=== PATIENT | male | born 1980 | race Caucasian/White ===

== ENCOUNTER 2021-01-09 17:33 | Emergency (ER) | payer OTHER ==
[~2021-01-09] VITALS: Ht 175.3 cm; Wt 99.8 kg
[2021-01-09 17:40] VITALS: BP 183/115
--- NOTE | 2021-01-09 17:40 | NUR ---
to bed via wheelchair
[2021-01-09] MEDS ORDERED: NITROGLYCERIN 0.4 MG TAB SL ONE ×2 (17:55→18:20)
[2021-01-09] MEDS ORDERED: MORPHINE SULFATE 4 MG/ML SYR IVP ONE (18:00)
[2021-01-09] MEDS ORDERED: ONDANSETRON 4 MG/2 ML VIAL IVP ONE (18:00)
[2021-01-09] MEDS ORDERED: ASPIRIN 81 MG TAB.CHEW PO ONE (18:00)
--- NOTE | 2021-01-09 18:16 | NUR ---
Patient is a 40 y/o male c/o 04/07 stabbing chest pain. Patient is diaphoretic, clenching chest. Patient states that he was working on his car when the pain started. PMH denies Rx denies Allergies: denies
--- NOTE | 2021-01-09 18:16 | NUR ---
xray at the bedside
--- NOTE | 2021-01-09 18:22 | NUR ---
[facility] at bedside for transport to [facility].
[2021-01-09 18:23] LABS: BASOPHILS # (AUTO) 0.1 K/uL (0.00-0.22); BASOPHILS % (AUTO) 0.7 % (0.0-2.0); EOSINOPHILS # (AUTO) 0.2 K/uL (0-0.4); EOSINOPHILS % (AUTO) 1.1 % (0.0-4.0); HEMOGLOBIN 18.7 g/dL (12.0-18.0); LYMPHOCYTES # (AUTO) 3.6 K/uL (2.0-11.5); LYMPHOCYTES % (AUTO) 22.1 % (20.5-51.1); MEAN CORPUSCULAR HEMOGLOBIN 31 pg (27-31); MEAN CORPUSCULAR HGB CONC 34 g/dL (33-37); MEAN CORPUSCULAR VOLUME 90.8 fL (80-94); MONOCYTES # (AUTO) 1.4 K/uL (0.8-1.0); MONOCYTES % (AUTO) 8.4 % (1.7-9.3); NEUTROPHILS # (AUTO) 11.2 K/uL (1.8-7.7); NEUTROPHILS % (AUTO) 67.7 % (42.2-75.2); PLATELET COUNT (AUTO) 295 K/uL (140-450); RED BLOOD CELL COUNT(AUTO) 6.07 MIL/uL (4.20-6.10); RED CELL DISTRIBUTION WIDTH 14.7 % (11.6-13.7); WHITE BLOOD COUNT (AUTO) 16.5 K/uL (4.8-10.8)
[2021-01-09 18:29] VITALS: BP 158/116
--- NOTE | 2021-01-09 18:31 | NUR ---
Patient to be transferred to [facility]. Is being transferred due to ACTIVE CHEST PAIN/STEMI. Receiving facility has accepting physician and available space. ER physician has signed transfer form. Patient or responsible alliance party has agreed to transfer and signed form. Patient belongings inventoried and will be sent with patient. Copy of nursing notes, lab reports, EKG, Physicians Orders and X-rays to be sent with patient. Report called to Tanna at receiving facility. [facility] ambulance service has been called for transfer. Patient picked up at 1827.
[2021-01-09 18:59] LABS: ALBUMIN 3.7 g/dL (3.4-5.0); ANION GAP 18.8 (8-16); CREATININE 1.3 mg/dL (0.6-1.3); TOTAL BILIRUBIN 1.3 mg/dL (0.0-1.0)
[2021-01-09 19:02] LABS: POTASSIUM 2.8 mmol/L (3.5-5.1)
== END 2021-01-09 18:28 | disposition short-term general hospital (02) ==
LOC: MED 17:33
DX: I21.9 Acute myocardial infarction, unspecified (principal)
CPT/HCPCS: 36415; 71045; 80053; 83880; 84484; 85025; 93005; 96374; 99291; J2270; J2405